=== PATIENT | male | born 1980 | race Caucasian/White ===

== ENCOUNTER 2016-04-22 10:44 | Inpatient (IN) | payer OTHER ==
[2016-04-22 10:59] VITALS: BMI 22.1
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
[2016-04-22] MEDS ORDERED: diphenhydrAMINE HCL 50 MG CAPSULE PO PRN (12:21)
[2016-04-22] MEDS ORDERED: hydrOXYzine PAMOATE 50 MG CAPSULE (FP) PO PRN (12:21)
[2016-04-22] MEDS ORDERED: IBUPROFEN 400 MG TABLET (FP) PO PRN (12:21)
[2016-04-22] MEDS ORDERED: MAGNESIUM CITRATE 300 ML BOTTLE PO PRN (12:21)
[2016-04-22] MEDS ORDERED: LOPERAMIDE HCL 2 MG CAPSULE PO PRN (12:21)
[2016-04-22] MEDS ORDERED: MENTHOL/PHENOL 1 EACH UD MM PRN (12:21)
[2016-04-22] MEDS ORDERED: P-EPHED 60MG/TRIPROLIDI 2.5MG TABLET PO PRN (12:21)
[2016-04-22] MEDS ORDERED: chlordiazePOXIDE HCL 25 MG CAPSULE PO PRN (12:21)
[2016-04-22] MEDS ORDERED: ACETAMINOPHEN 325 MG TABLET (FP) PO PRN (12:21)
[2016-04-22] MEDS ORDERED: MAG HYDROX/AL HYDROX/SIMETH 30 ML UNIT-DOSE CUP PO PRN (12:21)
[2016-04-22] MEDS ORDERED: guaiFENesin/D-METHORPHAN HB 10 ML UNIT-DOSE CUPS PO PRN (12:21)
[2016-04-22] MEDS ORDERED: MAGNESIUM HYDROX 2400MG/30ML ORAL SUSPENSION 30 ML CUP PO PRN (12:21)
[2016-04-22] MEDS ORDERED: chlordiazePOXIDE HCL 25 MG CAPSULE PO ONE (14:00)
[2016-04-22] MEDS: chlordiazePOXIDE HCL 25 MG CAPSULE PO SCH ×3 (14:23→22:07)
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
[2016-04-22 18:48] LABS: URINE APPEARANCE CLEAR; URINE BILIRUBIN NEGATIVE (NEGATIVE); URINE BLOOD NEGATIVE (NEGATIVE); URINE COLOR YELLOW; URINE GLUCOSE (UA) NEGATIVE (NEGATIVE); URINE KETONE NEGATIVE (NEGATIVE); URINE LEUK ESTERASE NEGATIVE (NEGATIVE); URINE NITRITE NEGATIVE (NEGATIVE); URINE PROTEIN NEGATIVE (NEGATIVE); URINE UROBILINOGEN 2.0 E.U/dl E.U./dl (0.2-1.0)
[2016-04-22] MEDS ORDERED: HALOPERIDOL 5 MG TABLET (FP) PO SCH (22:00)
[2016-04-22] MEDS: ZOLPIDEM TARTRATE 5 MG TABLET PO PRN (22:07)
[2016-04-22] MEDS: THIAMINE HCL 100 MG TABLET (FP) PO SCH (22:07)
[2016-04-23] MEDS ORDERED: METHADONE HCL 40 MG DISPERSABLE TABLET ONE (05:28)
[2016-04-23] MEDS ORDERED: METHADONE HCL 5 MG TABLET ONE (05:28)
[2016-04-23] MEDS: chlordiazePOXIDE HCL 25 MG CAPSULE PO SCH ×4 (05:48→22:11)
[2016-04-23] MEDS: METHADONE 80 MG, METHADONE 5 MG PO SCH (05:48)
[2016-04-23] MEDS ORDERED: METHADONE HCL 10 MG TABLET PO SCH (06:00)
[2016-04-23 09:53] LABS: MCH 29.5 pg (25.7-33.7); MCHC 32.5 g/dl (32.0-35.9); MEAN CELL VOLUME 90.8 fl (80-96); MEAN PLT VOLUME 9.4 fl (7.5-11.1); PLATELET COUNT 286 K/MM3 (134-434); RDW 13.1 % (11.9-15.9); WHITE BLOOD COUNT 8.7 K/mm3 (4.0-10.0)
[2016-04-23] MEDS: PRENATAL VITAMINS W/ FOLIC ACID TABLET (FP) PO SCH (10:03)
[2016-04-23 10:04] LABS: ALBUMIN 3.8 g/dl (3.4-5.0); ANION GAP 7 (8-16); CALCIUM 9.1 mg/dL (8.5-10.1); CO2 28 mmol/L (21-32); CREATININE 0.9 mg/dL (0.7-1.3); GLUCOSE,RANDOM 101 mg/dL (74-106); SGOT/AST 65 U/L (15-37); SGPT/ALT 55 U/L (12-78)
[2016-04-23 10:06] LABS: ALK PHOS 121 U/L (45-117); BILIRUBIN,TOTAL 0.5 mg/dL (0.2-1.0); TOT PROT 8.2 g/dl (6.4-8.2)
--- NOTE | 2016-04-23 10:16 | PN ---
[facility] CIWA - CIWA Score Nausea/Vomitin-No Nausea/No Vomiting Muscle Tremors: 4-Moderate,w/Arms Extend Anxiety: 4-Mod. Anxious/Guarded Agitation: 4-Moderately Restless Paroxysmal Sweats: 1-Minimal Palms Moist Orientation: 0-Oriented Tacttile Disturbances: 3-Moderate Itch/Numb/Burn Auditory Disturbances: 0-None Visual Disturbances: 0-None Headache: 0-None Present CIWA-Ar Total Score: 16 BHS Progress Note (SOAP) Subjective: ANXIETY,SWEATS,TREMORS,FATIGUE. Objective: 04/23/16 10:15 Vital Signs Temperature 95.9 F L 04/23/16 09:53 Pulse Rate 80 04/23/16 09:53 Respiratory Rate 19 04/23/16 09:53 Blood Pressure 110/76 04/23/16 09:53 O2 Sat by Pulse Oximetry (%) Laboratory Last Values Urine Color Yellow 04/22/16 13:55 Urine Appearance Clear 04/22/16 13:55 Urine pH 5.0 (5.0-8.0) 04/22/16 13:55 Ur Specific [place] 1.026 (1.001-1.035) 04/22/16 13:55 Urine Protein Negative (NEGATIVE) 04/22/16 13:55 Urine Glucose (UA) Negative (NEGATIVE) 04/22/16 13:55 Urine Ketones Negative (NEGATIVE) 04/22/16 13:55 Urine Blood Negative (NEGATIVE) 04/22/16 13:55 Urine Nitrite Negative (NEGATIVE) 04/22/16 13:55 Urine Bilirubin Negative (NEGATIVE) 04/22/16 13:55 Urine Urobilinogen 2.0 e.u/dl E.U./dl (0.2-1.0) 04/22/16 13:55 Ur Leukocyte Esterase Negative (NEGATIVE) 04/22/16 13:55 Hepatitis C Antibody >11.0 s/co ratio (0.0-0.9) H 04/22/16 12:30 Assessment: 04/23/16 10:15 WITHDRAWAL SX Plan: CONTINUE DETOX
--- NOTE | 2016-04-23 15:35 | EKG ---
Test Reason : Blood Pressure : / mmHG Vent. Rate : 069 BPM Atrial Rate : 069 BPM P-R Int : 132 ms QRS Dur : 084 ms QT Int : 468 ms P-R-T Axes : 078 072 040 degrees QTc Int : 501 ms NORMAL SINUS RHYTHM POSSIBLE LEFT ATRIAL ENLARGEMENT PROLONGED QT ABNORMAL ECG NO PREVIOUS ECGS AVAILABLE Confirmed by KIERA UREÑA, BRAD ([id number]) on 04/23/2016 3:35:15 PM Referred By: Confirmed By:BRAD QURESHI MD
--- NOTE | 2016-04-23 17:32 | PN ---
[facility] Progress Note Note: Psychiatry Attending's note : Issue : abnormal EKG.Prolonged QT. Met with the patient to discuss change of medications. Made aware of electrocardiographic findings. Haloperidol may potentiate risks of arrythmias. Alternate drugs discussed with the patient. Mr Maharaj agrees to switch to olanzapine. Side effects/benefits reviewed with patient. He is informed of the risk of metabolic syndrome. Patient consents (verbally) to be started on Zyprexa 5 mg po daily. Medication is ordered. Contact made with [facility] @ [phone]. I spoke to pharmacist :script for haldol is cancelled. Case was discussed with [employer]OR Ita Hunt.
[2016-04-23] MEDS: THIAMINE HCL 100 MG TABLET (FP) PO SCH (22:11)
[2016-04-23] MEDS: ZOLPIDEM TARTRATE 5 MG TABLET PO PRN (22:12)
[2016-04-24] MEDS ORDERED: METHADONE HCL 40 MG DISPERSABLE TABLET ONE (04:20)
[2016-04-24] MEDS ORDERED: METHADONE HCL 5 MG TABLET ONE (04:21)
[2016-04-24] MEDS: METHADONE 80 MG, METHADONE 5 MG PO SCH (05:54)
[2016-04-24] MEDS: chlordiazePOXIDE HCL 25 MG CAPSULE PO SCH (05:54)
[2016-04-24] MEDS: PRENATAL VITAMINS W/ FOLIC ACID TABLET (FP) PO SCH (10:31)
[2016-04-24] MEDS ORDERED: OLANZapine 5 MG TABLET PO SCH (10:45)
[2016-04-24] MEDS ORDERED: chlordiazePOXIDE 5 MG CAPSULE PO SCH (11:00)
--- NOTE | 2016-04-24 11:35 | PN ---
[facility] CIWA - CIWA Score Nausea/Vomitin-No Nausea/No Vomiting Muscle Tremors: 4-Moderate,w/Arms Extend Anxiety: 4-Mod. Anxious/Guarded Agitation: 3 Paroxysmal Sweats: 1-Minimal Palms Moist Orientation: 0-Oriented Tacttile Disturbances: 3-Moderate Itch/Numb/Burn Auditory Disturbances: 0-None Visual Disturbances: 0-None Headache: 0-None Present CIWA-Ar Total Score: 15 S Progress Note (SOAP) Subjective: ANXIETY,DECREASED TREMORS,FATIGUE. Objective: 04/24/16 11:33 Vital Signs Temperature 96.8 F L 04/24/16 09:38 Pulse Rate 86 04/24/16 09:38 Respiratory Rate 18 04/24/16 09:38 Blood Pressure 116/70 04/24/16 09:38 O2 Sat by Pulse Oximetry (%) Laboratory Last Values WBC 8.7 K/mm3 (4.0-10.0) 04/23/16 06:00 RBC 4.17 M/mm3 (4.00-5.60) 04/23/16 06:00 Hgb 12.3 GM/dL (11.7-16.9) 04/23/16 06:00 Hct 37.9 % (35.4-49) 04/23/16 06:00 MCV 90.8 fl (80-96) 04/23/16 06:00 MCHC 32.5 g/dl (32.0-35.9) 04/23/16 06:00 RDW 13.1 % (11.9-15.9) 04/23/16 06:00 Plt Count 286 K/MM3 (134-434) 04/23/16 06:00 MPV 9.4 fl (7.5-11.1) 04/23/16 06:00 Sodium 140 mmol/L (136-145) 04/23/16 06:00 Potassium 4.4 mmol/L (3.5-5.1) 04/23/16 06:00 Chloride 105 mmol/L (98-107) 04/23/16 06:00 Carbon Dioxide 28 mmol/L (21-32) 04/23/16 06:00 Anion Gap 7 (8-16) L 04/23/16 06:00 BUN 15 mg/dL (7-18) 04/23/16 06:00 Creatinine 0.9 mg/dL (0.7-1.3) 04/23/16 06:00 Creat Clearance w eGFR > 60 (>60) 04/23/16 06:00 Random Glucose 101 mg/dL (74-106) D 04/23/16 06:00 Calcium 9.1 mg/dL (8.5-10.1) 04/23/16 06:00 Total Bilirubin 0.5 mg/dL (0.2-1.0) D 04/23/16 06:00 AST 65 U/L (15-37) H D 04/23/16 06:00 ALT 55 U/L (12-78) D 04/23/16 06:00 Alkaline Phosphatase 121 U/L (45-117) H 04/23/16 06:00 Total Protein 8.2 g/dl (6.4-8.2) 04/23/16 06:00 Albumin 3.8 g/dl (3.4-5.0) 04/23/16 06:00 Urine Color Yellow 04/22/16 13:55 Urine Appearance Clear 04/22/16 13:55 Urine pH 5.0 (5.0-8.0) 04/22/16 13:55 Ur Specific [place] 1.026 (1.001-1.035) 04/22/16 13:55 Urine Protein Negative (NEGATIVE) 04/22/16 13:55 Urine Glucose (UA) Negative (NEGATIVE) 04/22/16 13:55 Urine Ketones Negative (NEGATIVE) 04/22/16 13:55 Urine Blood Negative (NEGATIVE) 04/22/16 13:55 Urine Nitrite Negative (NEGATIVE) 04/22/16 13:55 Urine Bilirubin Negative (NEGATIVE) 04/22/16 13:55 Urine Urobilinogen 2.0 e.u/dl E.U./dl (0.2-1.0) 04/22/16 13:55 Ur Leukocyte Esterase Negative (NEGATIVE) 04/22/16 13:55 RPR Titer Nonreactive (NONREACTIVE) 04/23/16 06:00 Hepatitis C Antibody >11.0 s/co ratio (0.0-0.9) H 04/22/16 12:30 Assessment: 04/24/16 11:34 WITHDRAWAL SX Plan: CONTINUE DETOX
[2016-04-24] MEDS ORDERED: chlordiazePOXIDE 5 MG CAPSULE PO ONE (17:00)
[2016-04-24] MEDS: ZOLPIDEM TARTRATE 5 MG TABLET PO PRN (22:15)
[2016-04-24] MEDS: chlordiazePOXIDE HCL 10 MG CAPSULE PO SCH (22:15)
[2016-04-24] MEDS: THIAMINE HCL 100 MG TABLET (FP) PO SCH (22:15)
[2016-04-25 00:08] LABS: HCV LOG 10 6.87 (.)
[2016-04-25] MEDS ORDERED: METHADONE HCL 40 MG DISPERSABLE TABLET ONE (03:09)
[2016-04-25] MEDS ORDERED: METHADONE HCL 5 MG TABLET ONE (03:10)
[2016-04-25] MEDS: METHADONE 80 MG, METHADONE 5 MG PO SCH (05:32)
[2016-04-25] MEDS: chlordiazePOXIDE HCL 10 MG CAPSULE PO SCH (05:32)
[2016-04-25 06:09] VITALS: BP 101/74; PULSE 87; TEMP 96.9
[2016-04-25] MEDS ORDERED: chlordiazePOXIDE HCL 10 MG CAPSULE PO SCH (11:00)
--- NOTE | 2016-05-04 17:00 | DS ---
[facility] Detox Discharge Summary Admission Date: 04/22/16 Discharge Date: 04/25/16 - History Present History: Alcohol Dependence, Cocaine Dependence, Sedative Dependence, MMTP Pertinent Past History: Hep C Schizophrenia - Physical Exam Results Vital Signs: Vital Signs Temperature 96.9 F L 04/25/16 06:09 Pulse Rate 87 04/25/16 06:09 Respiratory Rate 18 04/25/16 06:09 Blood Pressure 101/74 04/25/16 06:09 O2 Sat by Pulse Oximetry (%) Pertinent Admission Physical Exam Findings: Withdrawal sx. Laboratory Last Values WBC 8.7 K/mm3 (4.0-10.0) 04/23/16 06:00 RBC 4.17 M/mm3 (4.00-5.60) 04/23/16 06:00 Hgb 12.3 GM/dL (11.7-16.9) 04/23/16 06:00 Hct 37.9 % (35.4-49) 04/23/16 06:00 MCV 90.8 fl (80-96) 04/23/16 06:00 MCHC 32.5 g/dl (32.0-35.9) 04/23/16 06:00 RDW 13.1 % (11.9-15.9) 04/23/16 06:00 Plt Count 286 K/MM3 (134-434) 04/23/16 06:00 MPV 9.4 fl (7.5-11.1) 04/23/16 06:00 Sodium 140 mmol/L (136-145) 04/23/16 06:00 Potassium 4.4 mmol/L (3.5-5.1) 04/23/16 06:00 Chloride 105 mmol/L (98-107) 04/23/16 06:00 Carbon Dioxide 28 mmol/L (21-32) 04/23/16 06:00 Anion Gap 7 (8-16) L 04/23/16 06:00 BUN 15 mg/dL (7-18) 04/23/16 06:00 Creatinine 0.9 mg/dL (0.7-1.3) 04/23/16 06:00 Creat Clearance w eGFR > 60 (>60) 04/23/16 06:00 Random Glucose 101 mg/dL (74-106) D 04/23/16 06:00 Calcium 9.1 mg/dL (8.5-10.1) 04/23/16 06:00 Total Bilirubin 0.5 mg/dL (0.2-1.0) D 04/23/16 06:00 AST 65 U/L (15-37) H D 04/23/16 06:00 ALT 55 U/L (12-78) D 04/23/16 06:00 Alkaline Phosphatase 121 U/L (45-117) H 04/23/16 06:00 Total Protein 8.2 g/dl (6.4-8.2) 04/23/16 06:00 Albumin 3.8 g/dl (3.4-5.0) 04/23/16 06:00 Urine Color Yellow 04/22/16 13:55 Urine Appearance Clear 04/22/16 13:55 Urine pH 5.0 (5.0-8.0) 04/22/16 13:55 Ur Specific [place] 1.026 (1.001-1.035) 04/22/16 13:55 Urine Protein Negative (NEGATIVE) 04/22/16 13:55 Urine Glucose (UA) Negative (NEGATIVE) 04/22/16 13:55 Urine Ketones Negative (NEGATIVE) 04/22/16 13:55 Urine Blood Negative (NEGATIVE) 04/22/16 13:55 Urine Nitrite Negative (NEGATIVE) 04/22/16 13:55 Urine Bilirubin Negative (NEGATIVE) 04/22/16 13:55 Urine Urobilinogen 2.0 e.u/dl E.U./dl (0.2-1.0) 04/22/16 13:55 Ur Leukocyte Esterase Negative (NEGATIVE) 04/22/16 13:55 RPR Titer Nonreactive (NONREACTIVE) 04/23/16 06:00 Hepatitis C Antibody >11.0 s/co ratio (0.0-0.9) H 04/22/16 12:30 HCV Quantitation [id number] IU/mL (.) 04/23/16 11:10 HCV RNA log copies/mL 6.870 (.) 04/23/16 11:10 labs noted,known Hep c+ - Treatment Hospital Course: Detox Protocol Followed, Detoxed Safely, Responded well, Discharged Condition Good, Rehab Referral Accepted Patient has Accepted a Rehab Referral to: Self help group,12 steps - Medication Discharge Medications: Ambulatory Orders Haloperidol [Haldol -] 5 mg PO HS #30 tablet 07/19/15 Zolpidem Tartrate [Ambien] 10 mg PO HS 07/19/15 Olanzapine [Zyprexa -] 5 mg PO DAILY #30 tablet 04/24/16 - Diagnosis (1) Alcohol dependence with uncomplicated withdrawal Status: Acute (2) Cocaine dependence, uncomplicated Status: Acute (3) Insomnia Status: Acute (4) Nicotine dependence Status: Acute Qualifiers: Nicotine product type: cigarettes Substance use status: uncomplicated Qualified Code(s): F17.210 - Nicotine dependence, cigarettes, uncomplicated (5) Opioid dependence on agonist therapy Status: Acute (6) Sedative, hypnotic or anxiolytic dependence with withdrawal, uncomplicated Status: Acute (7) Hepatitis C Status: Chronic Qualifiers: Viral hepatitis chronicity: chronic Hepatic coma status: without hepatic coma Qualified Code(s): B18.2 - Chronic viral hepatitis C (8) Schizophrenia Status: Chronic Qualifiers: Schizophrenia type: undifferentiated schizophrenia Qualified Code(s) : F20.3 - Undifferentiated schizophrenia - AMA Did Patient Leave Against Medical Advice: No
== END 2016-04-25 09:03 | disposition home or self-care (01) | DRG 773 ==
LOC: YASAS 10:44 → Y3N 13:09
PROVIDERS: ADMIT Internal Medicine; ATTEND Internal Medicine
PROC: HZ2ZZZZ Detoxification Services for Substance Abuse Treatment (ICD-10-PCS; principal; 2016-04-25)
DX: F11.23 Opioid dependence with withdrawal (principal); F13.230 Sedative, hypnotic or anxiolytic dependence with withdrawal, uncomplicated; F10.230 Alcohol dependence with withdrawal, uncomplicated; F14.20 Cocaine dependence, uncomplicated; F17.210 Nicotine dependence, cigarettes, uncomplicated; F20.3 Undifferentiated schizophrenia; B18.2 Chronic viral hepatitis C; G47.00 Insomnia, unspecified; Z59.0 Homelessness
CPT/HCPCS: 36415; 80053; 81003; 85027; 86593; 87522; 93005; 93010

== ENCOUNTER 2024-01-29 12:42 | Inpatient (IN) | payer OTHER ==
[2024-01-29] MEDS ORDERED: MAG HYDROX/AL HYDROX/SIMETH 30 ML UNIT-DOSE CUP PO PRN (15:30)
[2024-01-29] MEDS ORDERED: BENZONATATE 200 MG CAPSULE PO PRN (15:30)
[2024-01-29] MEDS ORDERED: chlordiazePOXIDE HCL 25 MG CAPSULE PO PRN (15:30)
[2024-01-29] MEDS ORDERED: NALOXONE (NARCAN) HCL 4 MG/0.1 ML SPRAY NS PRN (15:30)
[2024-01-29] MEDS ORDERED: methaDONE HCL 10 MG TABLET (FOR DETOX USE ONLY) PO PRN (15:30)
[2024-01-29] MEDS ORDERED: LOPERAMIDE HCL 2 MG CAPSULE PO PRN (15:30)
[2024-01-29] MEDS ORDERED: POLYETHYLENE GLYCOL (HEALTHYLAX) 3350 17 GM PACKET PO PRN (15:30)
[2024-01-29] MEDS ORDERED: MAGNESIUM HYDROX 2400MG/30ML ORAL SUSPENSION 30 ML CUP PO PRN (15:30)
[2024-01-29] MEDS ORDERED: DICYCLOMINE HCL 10 MG CAPSULE PO PRN (15:30)
[2024-01-29] MEDS ORDERED: BENZOCAINE/MENTHOL (CHLORASEPTIC ) LOZENGE MM PRN (15:30)
[2024-01-29] MEDS ORDERED: ONDANSETRON *ODT* 4 MG TABLET SL PRN (15:30)
[2024-01-29] MEDS ORDERED: BISMUTH SUBSALICYLATE 524 MG/30 ML PO PRN (15:30)
[2024-01-29] MEDS ORDERED: methaDONE HCL 10 MG TABLET (FOR DETOX USE ONLY) PO ONE (15:30)
[2024-01-29] MEDS ORDERED: NICOTINE POLACRILEX 2 MG GUM BUC PRN (15:30)
[2024-01-29] MEDS ORDERED: guaiFENesin 600 MG TABLET.ER (FP) PO PRN (15:30)
[2024-01-29] MEDS ORDERED: cloNIDine HCL 0.1 MG TABLET PO PRN (15:30)
[2024-01-29] MEDS ORDERED: IBUPROFEN 600 MG TABLET (FP) PO PRN (15:30)
[2024-01-29 15:50] VITALS: BMI 22.8
[2024-01-29] MEDS: methaDONE HCL 10 MG TABLET (FOR DETOX USE ONLY) PO ONE (17:16)
[2024-01-29] MEDS: chlordiazePOXIDE HCL 25 MG CAPSULE PO SCH (17:18)
[2024-01-29] MEDS: IBUPROFEN 400 MG TABLET (FP) PO PRN (17:19)
[2024-01-29] MEDS: MELATONIN 5 MG TABLETS PO SCH (22:56)
[2024-01-29] MEDS: THIAMINE 100 MG TABLET PO SCH (22:57)
[2024-01-30] MEDS: PRENATAL VITAMINS W/ FOLIC ACID TABLET (FP) PO SCH (10:09)
[2024-01-30] MEDS: NICOTINE 21 MG/24 HOURS TOPICAL PATCH TD SCH (10:09)
[2024-01-30] MEDS: METHOCARBAMOL 500 MG TABLET PO PRN (10:13)
[2024-01-30] MEDS: hydrOXYzine PAMOATE 25 MG CAPSULE (FP) PO PRN (10:13)
[2024-01-30 16:06] LABS: CHLORIDE 108 mmol/L (98-107); POTASSIUM 3.7 mmol/L (3.5-5.1); SODIUM 140 mmol/L (136-145)
[2024-01-30 16:09] LABS: ALBUMIN 3.1 g/dl (3.4-5.0); ANION GAP 5 mmol/L (4-13); BLOOD UREA NITROGEN 14.6 mg/dL (7-18); CALCIUM 9.4 mg/dL (8.5-10.1); CO2 28 mmol/L (21-32); GLUCOSE,RANDOM 103 mg/dL (74-106)
[2024-01-30 16:12] LABS: CREATININE 0.8 mg/dL (0.55-1.3); SGOT/AST 25 U/L (15-37); SGPT/ALT 29 U/L (13-61)
[2024-01-30 16:14] LABS: BILIRUBIN,TOTAL 0.4 mg/dL (0.2-1); HEMOGLOBIN 11.8 GM/dL (11.7-16.9); MCH 28.8 pg (25.7-33.7); MEAN CELL VOLUME 90.1 fl (80-96); MEAN PLT VOLUME 8.2 fl (7.5-11.1); PLATELET COUNT 168 10^3/uL (134-434); RBC 4.11 M/mm3 (4.00-5.60); RDW 14.5 % (11.9-15.9); TOT PROT 7.4 g/dl (6.4-8.2); WHITE BLOOD COUNT 7.7 K/mm3 (4.0-10.0)
[2024-01-30 16:15] LABS: ALK PHOS 127 U/L (45-117)
[2024-01-31] MEDS: chlordiazePOXIDE HCL 25 MG CAPSULE PO SCH (05:44)
[2024-01-31] MEDS: methaDONE HCL 10 MG TABLET (FOR DETOX USE ONLY) PO ONE (10:11)
[2024-01-31] MEDS: BACITRACIN ZINC 15 GM TUBE TOPICAL OINTMENT TP SCH (22:47)
[2024-01-31] MEDS: SULFAMETHOXAZOLE/TRIMETHOPRIM 800MG/160MG D.S. TABLET PO SCH (22:56)
[2024-02-01] MEDS ORDERED: chlordiazePOXIDE HCL 10 MG CAPSULE PO PRN
[2024-02-01] MEDS: chlordiazePOXIDE HCL 10 MG CAPSULE PO SCH (05:58)
[2024-02-01] MEDS: ACETAMINOPHEN 325 MG TABLET (FP) PO PRN (20:08)
[2024-02-02] MEDS: chlordiazePOXIDE HCL 10 MG CAPSULE PO SCH (05:54)
[2024-02-02 09:21] VITALS: BP 122/78; PULSE 101; RESP 20; TEMP 97.6
[2024-02-02] MEDS: methaDONE HCL 10 MG TABLET (FOR DETOX USE ONLY) PO ONE (09:55)
[2024-02-02] MEDS: NALOXONE (NYS OPIOID OVERDOSE PROGRAM) 4 MG/0.1 ML SPRAY NS SCH (14:29)
[2024-02-03] MEDS ORDERED: chlordiazePOXIDE HCL 10 MG CAPSULE PO ONE (05:00)
== END 2024-02-02 12:40 | disposition home or self-care (01) | DRG 897 ==
LOC: YASAS 12:42 → Y6N 16:28
PROVIDERS: ADMIT Allergy & Immunology; ATTEND Surgery
PROC: HZ2ZZZZ Detoxification Services for Substance Abuse Treatment (ICD-10-PCS; principal; 2024-01-29)
DX: F11.23 Opioid dependence with withdrawal (principal); F19.282 Other psychoactive substance dependence with psychoactive substance-induced sleep disorder; L02.414 Cutaneous abscess of left upper limb; Z59.02 Unsheltered homelessness; F14.20 Cocaine dependence, uncomplicated; F10.230 Alcohol dependence with withdrawal, uncomplicated; F12.20 Cannabis dependence, uncomplicated; F17.210 Nicotine dependence, cigarettes, uncomplicated; F20.9 Schizophrenia, unspecified; B18.2 Chronic viral hepatitis C; M54.50 Low back pain, unspecified; G89.29 Other chronic pain; Z62.810 Personal history of physical and sexual abuse in childhood; Z87.828 Personal history of other (healed) physical injury and trauma
CPT/HCPCS: 36415; 80053; 80305; 80307; 85027; 86780; 93005; 93010